=== PATIENT | female | born 1950 | race Caucasian/White ===

== ENCOUNTER → 2021-06-26 | Outpatient (CLI) | payer OTHER ==
[~2021-06-26] VITALS: Ht 152.4 cm; Wt 76.6 kg
[~2021-06-26] MED LIST: 0.9% NACL 500ML IV.SOLN 500 ML IV SCH
[2021-06-26 09:46] LABS: BASOPHILS % (AUTO) 0.5 % (0.0-5.0); EOSINOPHILS % (AUTO) 2.2 % (0.0-8.0); HEMATOCRIT 42.4 % (36-48); LYMPHOCYTES % (AUTO) 29.9 % (21.0-51.0); MEAN CORPUSCULAR HEMOGLOBIN 26.1 pg (27.0-33.0); MEAN CORPUSCULAR HGB CONC 30.2 g/dL (32.0-36.0); MEAN CORPUSCULAR VOLUME 86.5 fL (79-99); MONOCYTES % (AUTO) 10.2 % (3.0-13.0); PLATELET COUNT (AUTO) 313 K/uL (130-400); RED CELL DISTRIBUTION WIDTH 19.5 % (11.0-15.5); WHITE BLOOD COUNT (AUTO) 6.3 K/uL (4.8-10.8)
[2021-06-26 10:02] LABS: INR 0.95 (0.85-1.15); PROTHROMBIN TIME 10.4 SEC (9.6-11.6)
[2021-06-26 10:04] LABS: CREATININE 0.7 mg/dL (0.5-1.5); PARTIAL THROMBOPLASTIN TIME 25.9 SEC (26.3-35.5); POTASSIUM 5.2 mmol/L (3.5-5.1)
[2021-06-26 10:07] LABS: B-TYPE NATRIURETIC PEPTIDE 162 pg/mL (0-100)
[2021-06-26 10:20] LABS: APPEARANCE,URINE Clear (CLEAR); BILIRUBIN,URINE Negative (NEGATIVE); COLOR,URINE Yellow (YELLOW); GLUCOSE, URINE (UA) Negative (NEGATIVE); KETONES,URINE Negative (NEGATIVE); LEUKOCYTE ESTERASE ,URINE Small (NEGATIVE); NITRATE,URINE Negative (NEGATIVE); OCCULT BLOOD,URINE Negative (NEGATIVE); PH,URINE 5.5 (5.0-8.0); PROTEIN,URINE Negative (NEGATIVE); UROBILINOGEN,URINE 0.2 mg/dL (0.2-1.0)
[2021-06-26 10:30] LABS: BACTERIA,URINE Few /HPF (None Seen); RBC,URINE 0-1 /HPF (0-1); SQUAMOUS EPITHELIAL CELL,UR 0-2 /HPF (0-2)
== END | disposition home or self-care (01) ==
LOC: EDSTATUS 09:00 → DAH 10:00
PROVIDERS: ATTEND Student in an Organized Health Care Education/Training Program
DX: Z01.810 Encounter for preprocedural cardiovascular examination (principal); R94.39 Abnormal result of other cardiovascular function study; Z79.01 Long term (current) use of anticoagulants
CPT/HCPCS: 36415; 71045; 80048; 81001; 83880; 85025; 85610; 85730; 93005

== ENCOUNTER 2021-07-08 05:47 | Day surgery (SDC) | payer OTHER ==
[2021-07-03 14:29] LABS: BASOPHILS % (AUTO) 0.5 % (0.0-5.0); EOSINOPHILS % (AUTO) 1.9 % (0.0-8.0); HEMATOCRIT 43.8 % (36-48); LYMPHOCYTES % (AUTO) 34.1 % (21.0-51.0); MEAN CORPUSCULAR HGB CONC 30.1 g/dL (32.0-36.0); MEAN CORPUSCULAR VOLUME 86.4 fL (79-99); MONOCYTES % (AUTO) 10.9 % (3.0-13.0); NEUTROPHILS % (AUTO) 52.2 % (40.0-77.0); PLATELET COUNT (AUTO) 322 K/uL (130-400); RED BLOOD CELL COUNT(AUTO) 5.07 MIL/uL (4.00-5.50); RED CELL DISTRIBUTION WIDTH 19.1 % (11.0-15.5); WHITE BLOOD COUNT (AUTO) 7.8 K/uL (4.8-10.8)
[2021-07-03 14:30] LABS: APPEARANCE,URINE Clear (CLEAR); BILIRUBIN,URINE Negative (NEGATIVE); COLOR,URINE Yellow (YELLOW); GLUCOSE, URINE (UA) Negative (NEGATIVE); KETONES,URINE Negative (NEGATIVE); LEUKOCYTE ESTERASE ,URINE Small (NEGATIVE); NITRATE,URINE Negative (NEGATIVE); OCCULT BLOOD,URINE Negative (NEGATIVE); PROTEIN,URINE Negative (NEGATIVE); UROBILINOGEN,URINE 0.2 mg/dL (0.2-1.0)
[2021-07-03 14:40] LABS: CREATININE 0.7 mg/dL (0.5-1.5); POTASSIUM 4.5 mmol/L (3.5-5.1); RBC,URINE None Seen /HPF (0-1)
[2021-07-03 14:41] LABS: BACTERIA,URINE Rare /HPF (None Seen); SQUAMOUS EPITHELIAL CELL,UR 0-2 /HPF (0-2)
[2021-07-03 14:43] LABS: INR 0.95 (0.85-1.15); PROTHROMBIN TIME 10.4 SEC (9.6-11.6)
[2021-07-03 14:44] LABS: PARTIAL THROMBOPLASTIN TIME 25.9 SEC (26.3-35.5)
[~2021-07-08] VITALS: Ht 152.4 cm; Wt 76.8 kg
[2021-07-08] VITALS (12 sets, daily range): BP systolic 87–168; BP diastolic 49–74
[~2021-07-08 05:47] MED LIST changes: -0.9% NACL 500ML IV.SOLN 500 ML IV SCH; +AMLO2.5T4 PO; +ATEN50TA PO; +CALC-1125 PO; +FERS325 PO; +FLUO20CA30 PO; +LATA7.5D OP; +LORA10TA7 PO; +ROSU20TA31 PO; +TIMO5DRO35 OP; +metamucil PO; +tylenol PO; +vitamin d3 PO
[2021-07-08] MEDS ORDERED: 0.9%NACL 1000ML 1,000 ML IV ONE (06:14)
[2021-07-08] MEDS ORDERED: IOHEXOL 350 MG/ML 100ML INFUS..BTL IV ONE (07:22)
[2021-07-08] MEDS ORDERED: MIDAZOLAM HCL 1 MG/ML 2ML VIAL ONE ×2 (07:23→08:21)
[2021-07-08] MEDS ORDERED: FENTANYL CITRATE PF 50 MCG/1 ML 2ML VIAL ONE (07:23)
[2021-07-08] MEDS ORDERED: LIDOCAINE HCL 1% MDV 50ML VIAL ONE (07:24)
[2021-07-08] MEDS ORDERED: IOHEXOL-350 75 ML VIAL IV ONE (07:55)
[2021-07-08] MEDS ORDERED: HYDRALAZINE 20MG/ML VIAL ONE (08:07)
[2021-07-08] MEDS ORDERED: DEXTROSE 50%-WATER 50 ML DISP.SYRIN IV PRN (09:00)
[2021-07-08] MEDS ORDERED: 0.9%NACL 1000ML 1,000 ML IV SCH (09:00)
[2021-07-08] MEDS ORDERED: LISINOPRIL 10 MG TABLET PO SCH (09:00)
[2021-07-08] MEDS ORDERED: GLUCAGON 1MG KIT 1 MG ML IM PRN (09:00)
[2021-07-08] MEDS ORDERED: FAMOTIDINE 20MG TAB ONE (12:32)
[2021-07-08] MEDS ORDERED: FAMOTIDINE 20MG TAB PO SCH (15:30)
== END 2021-07-08 15:10 | disposition home or self-care (01) ==
LOC: DAH 05:47
PROVIDERS: ATTEND Student in an Organized Health Care Education/Training Program
DX: I25.119 Atherosclerotic heart disease of native coronary artery with unspecified angina pectoris (principal); I49.1 Atrial premature depolarization; R94.31 Abnormal electrocardiogram [ECG] [EKG]; I10 Essential (primary) hypertension; E78.5 Hyperlipidemia, unspecified; D50.9 Iron deficiency anemia, unspecified; Z83.3 Family history of diabetes mellitus; Z82.49 Family history of ischemic heart disease and other diseases of the circulatory system; Z79.01 Long term (current) use of anticoagulants; Z79.899 Other long term (current) drug therapy; Z98.890 Other specified postprocedural states
CPT/HCPCS: 36415; 71045; 80048; 81001; 85025; 85610; 85730; 93005; 93454; A4215; A4221; A4222; A4223 ×3; A4606; A4663; C1760; C1894 ×2; J0360; J1644; J2250 ×2; J3010; J3490; J7030; Q9965; Q9967 ×2; 96365; 96366; 99156; 99157

== ENCOUNTER → 2022-12-14 | Outpatient (CLI) | payer OTHER ==
[~2022-12-14] MED LIST changes: -ROSU20TA31 PO; +ROSU20TA73 PO; -TIMO5DRO35 OP; +TIMO5DRO47 OP
[2022-12-14 13:02] LABS: CHOLESTEROL 152 mg/dL (<200); HDL CHOLESTEROL 79 mg/dL (35-85); LDL DIRECT 68 mg/dL (0-99); TRIGLYCERIDES 69 mg/dL (30-200)
== END | disposition home or self-care (01) ==
LOC: LAB 08:26
PROVIDERS: ATTEND Student in an Organized Health Care Education/Training Program
DX: R03.0 Elevated blood-pressure reading, without diagnosis of hypertension (principal); R07.9 Chest pain, unspecified; R00.2 Palpitations; I49.1 Atrial premature depolarization; R94.39 Abnormal result of other cardiovascular function study
CPT/HCPCS: 36415; 80061

== ENCOUNTER → 2023-03-23 | Outpatient (CLI) | payer OTHER | END | disposition home or self-care (01) | LOC: SHCH 14:36 | PROVIDERS: ATTEND Student in an Organized Health Care Education/Training Program | DX: I08.1 Rheumatic disorders of both mitral and tricuspid valves (principal); I27.20 Pulmonary hypertension, unspecified; Q21.12 Patent foramen ovale | CPT/HCPCS: 93306 ==

== ENCOUNTER → 2024-01-12 | Outpatient (CLI) | payer OTHER ==
[~2024-01-12] MED LIST changes: -ROSU20TA73 PO; +ROSU20TA98 PO
[2024-01-12 12:36] LABS: ALBUMIN 3.3 g/dL (3.5-5.0); BILIRUBIN,TOTAL 0.4 mg/dL (0.2-1.0); CREATININE 0.7 mg/dL (0.5-1.0); TOTAL PROTEIN, SERUM 6.5 g/dL (6.0-8.3)
== END | disposition home or self-care (01) ==
LOC: LAB 09:17
PROVIDERS: ATTEND Student in an Organized Health Care Education/Training Program
DX: I49.1 Atrial premature depolarization (principal); R94.39 Abnormal result of other cardiovascular function study; R00.2 Palpitations
CPT/HCPCS: 36415; 80053

== ENCOUNTER → 2024-04-16 | Outpatient (CLI) | payer OTHER ==
[2024-04-16 12:53] LABS: ALBUMIN 3.4 g/dL (3.5-5.0); BILIRUBIN,TOTAL 0.2 mg/dL (0.2-1.0); CREATININE 0.7 mg/dL (0.5-1.0); POTASSIUM 5.2 mmol/L (3.5-5.1); TOTAL PROTEIN, SERUM 6.7 g/dL (6.0-8.3)
== END | disposition home or self-care (01) ==
LOC: LAB 08:12
PROVIDERS: ATTEND Student in an Organized Health Care Education/Training Program
DX: E87.5 Hyperkalemia (principal)
CPT/HCPCS: 36415; 80053; 80061